=== PATIENT | male | born 1985 | race Caucasian/White ===

== ENCOUNTER 2023-05-02 17:52 | Emergency (ER) | payer BC ==
[~2023-05-02] VITALS: Ht 177.8 cm; Wt 102.1 kg
[2023-05-02 17:52] VITALS: BP_SYST 141; PULSE 95; RESP 18; TEMP 98.2; O2SAT 97
[2023-05-02] MEDS ORDERED: ACETAMINOPHEN 325 MG TABLET PO ONE (18:15)
[2023-05-02] MEDS ORDERED: LIDOCAINE/EPI 1% 1:100000 20 ML VIAL INJ ONE (20:45)
[2023-05-02 22:02] VITALS: BP_SYST 132; PULSE 89; RESP 18; TEMP 97.7; O2SAT 97
== END 2023-05-02 22:02 | disposition home or self-care (01) ==
LOC: SED 17:52
DX: S01.01XA Laceration without foreign body of scalp, initial encounter (principal); S06.0X0A Concussion without loss of consciousness, initial encounter; Z79.899 Other long term (current) drug therapy; W01.0XXA Fall on same level from slipping, tripping and stumbling without subsequent striking against object, initial encounter; Y93.89 Activity, other specified; Y92.89 Other specified places as the place of occurrence of the external cause; Y99.8 Other external cause status
CPT/HCPCS: 70450-TC; 72125-TC; 76376; 99284